=== PATIENT | male | born 1990 | race Caucasian/White ===

== ENCOUNTER 2021-12-22 22:23 | Emergency (ER) | payer MEDICAID ==
[~2021-12-22] VITALS: Ht 180.3 cm; Wt 77.2 kg
[2021-12-22 22:32] VITALS: BP 110/66
== END 2021-12-22 23:34 | disposition home or self-care (01) ==
LOC: ER 22:24
DX: S00.212A Abrasion of left eyelid and periocular area, initial encounter (principal); R51.9 Headache, unspecified; F32.A Depression, unspecified; Z72.89 Other problems related to lifestyle; X58.XXXA Exposure to other specified factors, initial encounter; Y93.89 Activity, other specified; Y92.89 Other specified places as the place of occurrence of the external cause; Y99.8 Other external cause status
CPT/HCPCS: 70450; 99284